=== PATIENT | male | born 1930 | race Caucasian/White ===

== ENCOUNTER 2016-08-03 00:12 | Day surgery (SDC) | payer SELFPAY ==
[2016-08-03] VITALS (11 sets, daily range): BP systolic 109–125; BP diastolic 64–80; PULSE 79–87; RESP 16–18; O2SAT 98–99
[~2016-08-03 00:12] MED LIST: ACET325T51 PO; ASCO-294 PO; ASPI-973 PO; ATEN25TA PO; FERR324T2 PO; HYDR-4003 PO; MAGN400O4 PO; MIRT15TA6 PO; NYST1000 PO; PANT40TA3 PO; POLY17PO6 PO; SIMV10TA4 PO; TAMS0.4C98 PO
--- NOTE | 2016-08-03 10:30 | NUR ---
pT HAS ARRIVED 2 HOURS LATE FOR SCHEDULED BILATERAL NEPHROSTOMY TUBE EXCHANGE. HE IS ACCOMPANIED AND DRIVEN HERE BY HIS CAREGIVER WHO STATES THAT SHE WAS TOLD TO BE HERE AT 11:00 AM. WE ARE ABLE TO ACCOMMODATE CHANGE IN TIME SO WILL PROCEED WITH ADMISSION.
[2016-08-03] MEDS ORDERED: 0.9% Sodium Chloride 500 ML ONE (10:48)
[2016-08-03] MEDS ORDERED: Levofloxacin 250 mg/50 mL D5W IV ONE (10:49)
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
[2016-08-03] MEDS ORDERED: Heparin 5,000 Units/500 mL NS Premix IV ONE (11:19)
[2016-08-03] MEDS ORDERED: fentaNYL-PF 50 mCg/mL 2 mL Inj ONE (11:20)
--- NOTE | 2016-08-03 11:56 | NUR ---
MAGALI PT RECEIVED FROM VENDING MECHANIC AT 1155. BILATERAL NEPHROSTOMY TUBES ARE DRAINING. RIGHT IS CLEAR YELLOW URINE AND LEFT IS BLOODY DRAINAGE. PT DENIES ANY PAIN. VSS.
--- NOTE | 2016-08-03 12:32 | DRSVH ---
PROCEDURE: 1. Right nephrostomy tube exchange. 2. Left nephrostomy tube exchange. 2. Conscious sedation times 27 minutes. INDICATIONS: Ureteral obstruction. COMPARISON: None. Technique: Informed, written consent from the patient was obtained prior to the procedure. Patient wa s brought to the angiography suite, and conscious sedation was administered intravenously by senior living staff, while continuous cardiorespiratory monitoring was performed. The right nephrostomy tub e and surrounding skin were prepped and draped sterilely. Contrast was injected into the nephrostomy catheter, which was then exchanged over a Glidewire for a new 10 [place] nephrostomy catheter, which was advanced into the renal pelvis. Contrast was injected into the nephrostomy catheter, which was th en fastened to the skin surface. The left nephrostomy tube and surrounding skin were prepped and blanche ped sterilely. Contrast was injected into the nephrostomy catheter, which was then exchanged over a Glidewire for a new 10 [place] nephrostomy catheter, which was advanced into the renal pelvis. Contras t was injected into the nephrostomy catheter, which was then fastened to the skin surface. FLUOROSCOPY TIME: 6 minutes. FINDINGS: The pre-existing right nephrostomy catheter is within an inferior pole infundibulum. Follo wing nephrostomy catheter exchange, the pigtail of the new nephrostomy catheter is within the renal p boni. Pre-existing left nephrostomy catheter pigtail is within the renal pelvis. Following nephrosto my catheter exchange, the pigtail of the new nephrostomy catheter is within the renal pelvis. IMPRESSION: 1. Right nephrostomy catheter exchange as described above. 2. Left nephrostomy catheter exchange as described above. Dictated by: Khoa Lisa M.D. on 08/03/2016 at 12:30 Approved by: Khoa Lisa M.D. on 08/03/2016 at 12:30
--- NOTE | 2016-08-03 13:30 | NUR ---
I OBTAINED RX FROM DR CISNEROS FOR DRESSING AND BAG SUPPLIES FOR PATIENT AND THOSE ORDERS ARE FAXED TO APPROP[facility]ATE [facility]ENCY. I HAVE ALSO INFORMED HIM OF CONTINUED GROSS HEMATURIA FROM LEFT NEPHROSTOMY TUBE AND THAT I HAVE FLUSHED IT 2 TIMES ALREADY. PATIENT HAS PAIN WHEN FLUSHED WITH 10CC NS.DR CISNEROS HAD ME INSTRUCT PATIENT AND CAREGIVER TO ONLY INSTILL 5CC SALINE TO LEFT KIDNEY AND 10CC NS TO RIGHT. I INSTILLED 10CC NS TO RIGHT KIDNEY AND PATIENT HAD NO COMPLAINTS. ADDITIONALLY, PATIENT IS TO RETURN IN 6 MONTHS TO HAVE ANOTHER EXCHANGE. OUR DIRECTOR PRODUCT CALLED TO SCHEDULE BUT IT IS TOO DISTANT TO SCHEDULE NOW. SHE CALLED DR. MCNEILL'S OFFICE TO INFORM THEM AND THE ORDER IS ALSO FAXED TO HER OFFICE. DR MCNEILL, UROLOGIST, IS THE REFERRING PHYSICIAN FOR TODAY'S PROCEDURE.
--- NOTE | 2016-08-03 14:00 | NUR ---
PATIENT'S CAREGIVER IS INSTRUCTED HOW TO FLUSH NEPHROSTOMY TUBES AND SHE CORRECTLY DEMONSTRATES THIS TO ME.I CHANGED OUT THE LEFT NEPHROSTOMY BAG ALSO. I HAVE GIVEN THE PATIENT BAGS AND STAYFIX DRSG FOR THE NEXT MONTH UNTIL HE RECEIVES SUPPLIES. THE ARC WELDER HAS RETURNED MY CALL AND UNFORTUNATELY AT THIS POINT THERE IS NO INTERVENTION THAT CAN BE MADE. I INFORMED CAREGIVER THAT IF PATIENT IS UNABLE TO AFFORD THE SERVICES OF THE CAREGIVERS (HE IS PRIVATE PAY FOR 24 HR CAREGIVER CURRENTLY), THAT SHE SHOULD HAVE HER AGENCY INFORM PATIENT'S PRIMARY DOCTOR OF THIS, PERHAPS REFERRAL COULD BE MADE TO [facility] TO SEE IF PATIENT QUALIFIES FOR ANY SERVICES.I ALSO ADVISED PATIENT TO FOLLOW UP WITH MEDICARE REGISTRATION FOR THIS STATE. HE NODS UNDERSTANDING TO THIS.PATIENT'S DISCHARGE INSTRUCTIONS REVIEWED WITH HIM AND CAREGIVER. I STRESSED TO PATIENT AND CAREGIVER THAT IF HE STARTS TO HAVE A FEVER WITH OR WITHOUT SHAKING CHILLS THEY ARE TO CALL 911 IMMEDIATELY THIS MAY SIGNAL A POSSIBLE FATAL INFECTION. PATIENT IS DISCHARGED IN WHEELCHAIR WITH CAREGIVER.
--- OUTSIDE RECORDS SUMMARY | 2016-08-16 08:10 | XMS | Continuity of Care Document ---
Author Author [facility] Organization [facility] [place] [address] Phone Unavailable Care Team Providers Care Twist Packer Name Role Phone Unavailable Unavailable Allergies, Adverse Reactions, Alerts Allergen Type Severity Reaction Last Updated Verified Status Penicillins Allergy Moderate Rash January 03, 2016 Y Active Medications Active Medications Medication Dose Units Route Sig Qty Days Start Date Discontinued Date Status Instructions Simvastatin 10 MG ORAL EVERY EVENING December 16, 2012 Active Aspirin 81 MG ORAL DAILY December 16, 2012 Active Tamsulosin 0.4 MG ORAL EVERY EVENING September 14, 2015 Active Acetaminophen 650 MG ORAL EVERY 4 HOURS PRN For Pain 1 to 4 0 March 20, 2016 Active Hydrocodone/Acetaminophen 2 TAB ORAL Q4H PRN For Pain August 04, 2016 Active Mirtazapine 15 MG ORAL EVERY EVENING August 04, 2016 Active Nystatin 1 APPLIC TOPICALLY THREE TIMES A DAY August 06, 2016 Active Acetaminophen 650 MG ORAL EVERY 4 HOURS PRN For Pain 1 to 4 0 August 09, 2016 Active Ferrous Sulfate 325 MG ORAL TWICE DAILY WITH MEALS August 09, 2016 Active Metoprolol Tartrate 12.5 MG ORAL TWICE A DAY 30 August 09, 2016 Active Nystatin Cream 1 APPLIC TOPICALLY THREE TIMES A DAY August 09, 2016 Active Nystatin 1 APPLIC TOPICALLY THREE TIMES A DAY 0 August 09, 2016 Active Potassium Chloride 40 MEQ ORAL DAILY WITH MEAL 10 August 09, 2016 Active Discontinued Medications Medication Dose Units Route Sig Qty Days Start Date Discontinued Date Status Instructions Atenolol 25 MG ORAL DAILY December 16, 2012 March 16, 2016 Discontinued Lisinopril 10 MG ORAL DAILY December 16, 2012 September 14, 2015 Discontinued Cyanocobalamin (Vitamin B-12) 1 DAILY December 16, 2012 October 21, 2014 Discontinued Cephalexin 500 MG ORAL THREE TIMES A DAY 20 September 10, 2014October Discontinued Cholecalciferol (Vitamin D3) 1000 UNIT ORAL DAILY October 21, 2014 September 14, 2015 Discontinued Atenolol 25 MG ORAL DAILY March 16, 2016 March 16, 2016 Discontinued Pantoprazole 40 MG ORAL DAILY BEFORE A MEAL 30 March 16, 2016 March 16, 2016 Discontinued Tamsulosin 0.4 MG ORAL DAILY March 16, 2016 March 16, 2016 Discontinued Omeprazole 20 MG ORAL DAILY March 17, 2016 August 04, 2016 Discontinued Ciprofloxacin 250 MG ORAL TWICE A DAY 60 March 20, 2016 August 04, 2016 Discontinued Fluconazole 200 MG ORAL DAILY 28 March 20, 2016 August 04, 2016 Discontinued Linezolid 600 MG ORAL TWICE A DAY 60 March 20, 2016 August 04, 2016 Discontinued Saccharomyces Boulardii 250 MG ORAL TWICE A DAY 60 March 20, 2016 August 04, 2016 Discontinued Problem List Active Problems Medical Problem Onset Date Status Abnormal LFTs (liver function tests) Active Acute on chronic renal insufficiency Active Altered mental status Active Anemia Active Anemia aplastic aregenerative Active Anemia in chronic kidney disease Active Atrial fibrillation, rapid Active Bacteremia Active Benign prostatic hypertrophy with lower urinary tract symptoms (LUTS) Active Colon neoplasm Active Colonic obstruction Active Colostomy care Active Contact dermatitis Active Counseling regarding end of life decision making Active Dehydration Active Electrolyte and fluid disorder Active Enterococcus, vancomycin-resistant Active Failure to thrive in adult Active Fever Active Macias catheter problem Active Gait disturbance Active Gram positive sepsis Active Group B streptococcal bacteriuria Active HTN (hypertension) Active [id number] Active History of colon cancer, stage II Active 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 Active Hyperkalemia Active Hyperlipidemia Active Hypophosphatemia Active Hypotension Active Large bowel obstruction Active Nephrostomy tube bleed Active Non-STEMI (non-ST elevated myocardial infarction) Active Orthostatic hypotension Active Paroxysmal atrial fibrillation Active Pneumonia Active Protein calorie malnutrition Active Renal artery stenosis Active Renal failure Active Renal failure (ARF), acute on chronic Active Renal insufficiency Active Sepsis Active Sepsis associated hypotension Active Syncope Active Tachyarrhythmia Active UTI (lower urinary tract infection) Active UTI (urinary tract infection) Active UTI (urinary tract infection) with pyuria Active UTI (urinary tract infection), bacterial Active UTI symptoms Active Urinary (tract) obstruction Active Urinary retention Active anemia Active Procedures Procedure Date Status Urine Culture August 06, 2016 completed Blood Culture August 05, 2016 completed Urine Culture August 04, 2016 completed Blood Culture August 04, 2016 completed Urine Culture April 01, 2016 completed Blood Culture April 01, 2016 completed Urine Culture March 19, 2016 completed Occult Blood March 18, 2016 completed Blood Culture March 18, 2016 completed Wound Culture March 14, 2016 completed Occult Blood March 14, 2016 completed Blood Culture March 14, 2016 completed Urine Culture March 13, 2016 completed FLUOROSCOPY OF KIDNEY, URETER & BLADDER USING L OSM CONTRAST January 31, 2016 active REMOVAL OF INTRALUMINAL DEVICE FROM URETER, ENDO January 31, 2016 active DILATION OF RIGHT URETER, ENDO January 31, 2016 active Occult Blood January 04, 2016 completed Urine Culture January 03, 2016 completed Occult Blood November 13, 2015 completed Urine Culture November 12, 2015 completed Blood Culture November 11, 2015 completed TRANSFUSE NONAUT RED BLOOD CELLS IN PERIPH VEIN, PERC November 08, 2015 active EXCISION OF PROSTATE, ENDO November 08, 2015 active EXTIRPATION OF MATTER FROM BLADDER, ENDO November 08, 2015 active DILATION OF RIGHT URETER WITH INTRALUMINAL DEVICE, ENDO November 08, 2015 active Relevant Diagnostic Tests and/or Laboratory Data Laboratory Results Test Date/Time Result Interp. Ref. Range Result Comment White Blood Count August 09, 2016 6:08am 4.9 x10^3/uL 4.8-10.8 Red Blood Count August 09, 2016 6:08am 2.73 10^6/uL Low 4.70-6.10 Hemoglobin August 09, 2016 6:08am 8.3 g/dL Low 14.0-18.0 Hematocrit August 09, 2016 6:08am 25.4 % Low 42.0-52.0 Mean Corpuscular Volume August 09, 2016 6:08am 92.9 fL 80.0-94.0 Mean Corpuscular Hemoglobin August 09, 2016 6:08am 30.5 pg 27.0-31.0 Mean Corpuscular Hemoglobin Concent August 09, 2016 6:08am 32.8 g/dL 32.0-36.0 Red Cell Distribution Width August 09, 2016 6:08am 14.8 % 12.0-15.0 Mean Platelet Volume August 09, 2016 6:08am 8.5 fL 7.4-11.4 Neutrophils # (Auto) August 09, 2016 6:08am 2.5 10^3/uL 1.5-6.6 Monocytes # (Auto) August 09, 2016 6:08am 0.4 10^3/uL 0.0-1.0 Eosinophils # (Auto) August 09, 2016 6:08am 0.5 10^3/uL 0.0-0.7 Basophils # (Auto) August 09, 2016 6:08am 0.0 10^3/uL 0.0-0.1 Nucleated Red Blood Cells August 09, 2016 6:08am 0.0 /100WBC Nucleated RBC Absolute Count (auto) August 09, 2016 6:08am 0.00 x10^3/uL Neutrophils # (Manual) August 08, 2016 4:13am 2.5 10^3/uL 1.5-6.6 Lymphocytes # (Manual) August 08, 2016 4:13am 1.5 10^3/uL 1.5-3.5 Monocytes # (Manual) August 08, 2016 4:13am 0.5 10^3/uL 0.0-1.0 Eosinophils # (Manual) August 08, 2016 4:13am 0.4 10^3/uL 0-0.7 Platelet Morphology March 19, 2016 5:40am NORMAL APPEARANCE Platelet Estimate August 08, 2016 4:13am NORMAL (130-450,000) RBC Morphol Microscopic Appearance August 08, 2016 4:13am NORMAL APPEARANCE White Blood Cell Morphology November 14, 2015 5:35am NORMAL APPEARANCE Prothrombin Time August 06, 2016 4:40pm 12.7 secs High 9.9-12.6 Prothromb Time International Ratio August 06, 2016 4:40pm 1.1 0.8-1.2 Oral Anticoagulant Indication INR range Venous Thrombosis, P.E. 2.0 - 3.0 Mechanical Valve 2.5 - 3.5 Urine Color August 08, 2016 11:00am LT. YELLOW Urine Clarity August 08, 2016 11:00am CLEAR Urine Leukocyte Esterase August 08, 2016 11:00am SMALL High Urine Nitrite August 08, 2016 11:00am NEGATIVE Urine Urobilinogen August 08, 2016 11:00am 0.2 (NORMAL) E.U./dL Urine Protein August 08, 2016 11:00am NEGATIVE mg/dL Urine pH August 08, 2016 11:00am 7.0 PH Urine Occult Blood August 08, 2016 11:00am MODERATE High Urine Specific [place] August 08, 2016 11:00am 1.010 Urine Ketones August 08, 2016 11:00am NEGATIVE mg/dL Urine Bilirubin August 08, 2016 11:00am NEGATIVE Urine Glucose (UA) August 08, 2016 11:00am NEGATIVE mg/dL Urine Microscopic Review August 05, 2016 11:59pm INDICATED Urine WBC August 08, 2016 11:00am 6-10 /HPF High Urine WBC Clumps March 16, 2016 10:15pm PRESENT Urine RBC August 08, 2016 11:00am 6-10 /HPF High Urine Squamous Epithelial Cells August 08, 2016 11:00am NONE SEEN Urine Epithelial Cells April 01, 2016 9:25am FEW Transitional /HPF Urine Bacteria August 08, 2016 11:00am Rare /HPF Urine Amorphous Sediment April 01, 2016 9:25am Few /LPF Urine Yeast March 19, 2016 3:15pm PRESENT Urine Culture Comments August 06, 2016 12:50am INDICATED Sodium Level August 09, 2016 6:08am 142 mmol/L 135-145 Potassium Level August 09, 2016 6:08am 3.4 mmol/L Low 3.5-5.0 Chloride Level August 09, 2016 6:08am 113 mmol/L High 101-111 Carbon Dioxide Level August 09, 2016 6:08am 21 mmol/L 21-32 Anion Gap August 09, 2016 6:08am 8.0 6-13 Blood Urea Nitrogen August 09, 2016 6:08am 10 mg/dL 6-20 Creatinine August 09, 2016 6:08am 1.6 mg/dL High 0.6-1.2 Estimated GFR (MDRD) August 09, 2016 6:08am 41 Low 89- The IDMS- traceable MDRD Study Equation has been validated extensively in and populations between the ages of 18 and 70 with impaired kidney function (eGFR < 60 mL/min/1.73m2) and has shown good performance for patients with all common causes of kidney disease. Although this equation has not been validated for patients older than 70, an MDRD-derived eGFR may still be a useful tool for providers caring for patients older than 70. References: http://www.nkdep.nih.gov/lab-evaluation/gfr/creatinine- standardization, last updated September 2011. Glucose Level August 09, 2016 6:08am 87 mg/dL 70-100 GLUCOSE REFERENCE RANGE: Fasting 70-100 mg/dL Random <200 mg/dL Calcium Level August 09, 2016 6:08am 8.2 mg/dL Low 8.5-10.3 Phosphorus Level August 08, 2016 4:13am 3.5 mg/dL 2.5-4.6 Magnesium Level August 06, 2016 10:50am 1.9 mg/dL 1.7-2.8 Total Bilirubin August 09, 2016 6:08am 0.7 mg/dL 0.2-1.0 Aspartate Amino Transf (AST/SGOT) August 09, 2016 6:08am 15 IU/L 10-42 Alanine Aminotransferase (ALT/SGPT) August 09, 2016 6:08am 13 IU/L 10- 60 Alkaline Phosphatase August 09, 2016 6:08am 47 IU/L 42-121 Troponin I August 05, 2016 7:00pm < 0.04 ng/mL A TROPONIN result of > =0.50 ng/mL is considered POSITIVE. B-Type Natriuretic Peptide April 03, 2016 4:40am 46 pg/mL 5-100 Total Protein August 09, 2016 6:08am 6.1 g/dL Low 6.7-8.2 Albumin August 09, 2016 6:08am 2.4 g/dL Low 3.2-5.5 Globulin August 09, 2016 6:08am 3.7 g/dL 2.1-4.2 Albumin/Globulin Ratio August 09, 2016 6:08am 0.6 Low 1.0-2.2 Lipase August 04, 2016 6:25pm 30 U/L 22-51 Thyroid Stimulating Hormone (TSH) August 05, 2016 7:00pm 2.66 uIU/mL 0.34-5.60 Microbiology Results Procedure Source Result Collection Date/Time Result Date/Time Blood Culture Blood NO GROWTH AFTER 5 DAYS November 11, 2015 5:50pm Urine Culture Urine,Clean Catch No results entered November 12, 2015 2:00pm Occult Blood Stool No results entered November 13, 2015 8:43pm Urine Culture Urine,Clean Catch No results entered January 03, 2016 11:40am Occult Blood Stool No results entered January 04, 2016 8:05pm Urine Culture Urine,Catheterized No results entered March 13, 2016 5:45pm Wound Culture Drainage No results entered March 14, 2016 11:36am Occult Blood Stool No results entered March 14, 2016 8:00am Blood Culture Blood NO GROWTH AFTER 5 DAYS March 14, 2016 12:14am Occult Blood Stool No results entered March 18, 2016 12:34pm Blood Culture Blood NO GROWTH AFTER 5 DAYS March 18, 2016 4:35am Urine Culture Urine,Clean Catch No results entered March 19, 2016 3:15pm Blood Culture Blood NO GROWTH AFTER 5 DAYS April 01, 2016 1:34pm Urine Culture Urine,Random No growth April 01, 2016 9:25am Blood Culture Blood Staphylococcus Aureus August 04, 2016 7:25pm August 10, 2016 12:11pm Urine Culture Urine,Clean Catch No results entered August 04, 2016 6:45pm Blood Culture Blood NO GROWTH AFTER 5 DAYS August 05, 2016 7:00pm Urine Culture Urine,Kidney No growth August 06, 2016 12:50am Advance Directives Advance Directive Response Recorded Date/Time Advance Directives on file? No August 05, 2016 8:34pm Code Status Do Not Attempt Resuscitat August 05, 2016 8:33pm Chief Complaint and Reason for Visit Encounter Admit Date Chief Complaint Reason for Visit Discharged Inpatient August 05, 2016 7:33pm BACTEREMIA Rapid atrial fibrillation Bacteremia Gram positive sepsis Hemorrhage of genitourinary prosthetic device, implant, or graft Hypophosphatemia Paroxysmal atrial fibrillation Hospital Discharge Instructions Additional Discharge Instructions Follow up with urologist Follow up with PCP in 5-7 days for BP managment; calcium and potassium levels, hgb and hct level Instruction/Education Provided Potassium Oral tablet extended-release Metoprolol Tartrate Oral tablet Hypophosphatemia Dc Hospital Discharge Medications Medication Dose Units Route Sig Qty Days Order Date Status Instructions Atenolol 25 MG ORAL DAILY December 16, 2012 Discontinued Lisinopril 10 MG ORAL DAILY December 16, 2012 Discontinued Simvastatin 10 MG ORAL EVERY EVENING December 16, 2012 Active Aspirin 81 MG ORAL DAILY December 16, 2012 Active Cyanocobalamin (Vitamin B-12) 1 DAILY December 16, 2012 Discontinued Cephalexin 500 MG ORAL THREE TIMES A DAY September 10, 2014 Discontinued Cholecalciferol (Vitamin D3) 1000 UNIT ORAL DAILY October 21, 2014 Discontinued Tamsulosin 0.4 MG ORAL EVERY EVENING September 14, 2015 Active Atenolol 25 MG ORAL DAILY March 16, 2016 Discontinued Pantoprazole 40 MG ORAL DAILY BEFORE A MEAL March 16, 2016 Discontinued Tamsulosin 0.4 MG ORAL DAILY March 16, 2016 Discontinued Omeprazole 20 MG ORAL DAILY March 17, 2016 Discontinued Acetaminophen 650 MG ORAL EVERY 4 HOURS PRN For Pain 1 to 4 0 March 20, 2016 Active Ciprofloxacin 250 MG ORAL TWICE A DAY 60 March 20, 2016 Discontinued Fluconazole 200 MG ORAL DAILY 28 March 20, 2016 Discontinued Linezolid 600 MG ORAL TWICE A DAY 60 March 20, 2016 Discontinued Saccharomyces Boulardii 250 MG ORAL TWICE A DAY 60 March 20, 2016 Discontinued Hydrocodone/Acetaminophen 2 TAB ORAL Q4H PRN For Pain August 04, 2016 Active Mirtazapine 15 MG ORAL EVERY EVENING August 04, 2016 Active Nystatin 1 APPLIC TOPICALLY THREE TIMES A DAY August 06, 2016 Active Acetaminophen 650 MG ORAL EVERY 4 HOURS PRN For Pain 1 to 4 0 August 09, 2016 Active Ferrous Sulfate 325 MG ORAL TWICE DAILY WITH MEALS August 09, 2016 Active Metoprolol Tartrate 12.5 MG ORAL TWICE A DAY 30 August 09, 2016 Active Nystatin Cream 1 APPLIC TOPICALLY THREE TIMES A DAY August 09, 2016 Active Nystatin 1 APPLIC TOPICALLY THREE TIMES A DAY 0 August 09, 2016 Active Potassium Chloride 40 MEQ ORAL DAILY WITH MEAL 10 August 09, 2016 Active Encounters Encounter Facility Location Admit Date Discharge Date Attending Provider Discharged Inpatient [facility] August 05, 2016 7:33pm August 09, 2016 6:30pm Palak Cruz Departed Emergency [facility] Emergency Department August 04, 2016 5:47pm August 04, 2016 8:38pm Departed [facility] August 04, 2016 5:36pm August 04, 2016 5:37pm Blair Valdez Departed [facility] Services July 14, 2016 12:20pm July 14, 2016 12:21pm Blair Valdez Departed [facility] Lab (Main) June 23, 2016 11:14am June 23, 2016 11:15am Cookie Lindsay Departed Clinical [facility] April 03, 2016 2:00pm April 03, 2016 11:59pm Blair Valdez Discharged Inpatient [facility] April 01, 2016 10:27am April 03, 2016 1:50pm Veronica Barakat Departed Clinical [facility] April 01, 2016 8:00am April 01, 2016 8:01am Blair Valdez Departed Clinical [facility] March 31, 2016 7:34am March 31, 2016 7:35am Blair Valdez Departed [facility] Lab (Main) March 21, 2016 11 :52am March 21, 2016 11:53am Cookie Lindsay Discharged Inpatient [facility] March 16, 2016 10:56pm March 20, 2016 11:30am Veronica Barakat Departed [facility] Services March 16, 2016 7:34pm March 16, 2016 11:59pm Blair Valdez Discharged Inpatient [facility] March 13, 2016 3:04pm March 16, 2016 2:15pm Veronica Barakat Departed [facility] Medical Services March 13, 2016 12:29pm March 13, 2016 12:30pm Blair Valdez Departed Surgical Day Care [facility] Same Day Surgery January 31, 2016 8:14am January 31, 2016 8:15am Igor Haney Departed [facility] Diagnostic Imaging (Main) January 26, 2016 11:18am January 26, 2016 11:[facility] 11, 2016 11: 53am January 11, 2016 11:54am Camelia Bañuelos Discharged Inpatient [facility] December 2:15pm January 06, 2016 12:45pm Veronica Barakat Departed [facility] Emergency Medical Services January 03, 2016 10:26am January 03, 2016 10:27am Blair Valdez Departed [facility] Services January 02, 2016 7:13pm January 02, 2016 7:14pm Blair Valdez Departed [facility] ([facility]) December 02, 2015 9:45am December 02, 2015 9:46am Camelia Bañuelos Departed [facility] Medical Services November 14, 2015 2:48pm November 14, 2015 2:49pm Blair Valdez Discharged Inpatient [facility] November 08, 2015 6:03am November 14, 2015 2:35pm Igor Haney Departed Clinical [facility] Lab (Main) October 26, 2015 9: 42am October 26, 2015 9:43am Igor Haney Departed Clinical [facility] Lab (Main) October 19, 2015 6: 54am October 19, 2015 6:55am Igor Haney Encounter Diagnosis Onset Date Rapid atrial fibrillation Bacteremia Gram positive sepsis Hemorrhage of genitourinary prosthetic device, implant, or graft Hypophosphatemia Paroxysmal atrial fibrillation Functional Status No known functional status. Immunizations No known immunizations. Payers Payer Name Policy Type Covered Democrat Covered Democrat Id Relationship Subscriber Subscriber Id [employer] GH Recipro BIRD CRUZ [id number] Self / Same as Patient BIRD CRUZ [id number] Medicare Misc BIRD CRUZ [id number] Self / Same as Patient BIRD CRUZ [id number] Plan of Care Instructions Potassium Oral tablet extended-release Metoprolol Tartrate Oral tablet Hypophosphatemia Dc Social History Query Response Date Recorded Comment Are you having thoughts of suicide? No August 06, 2016 12:00am Cellular January 31, 2016 8:33am Emotional Support unknown August 05, 2016 10:11pm Name Dr. Christopher Portillo August 07, 2016 11:22pm Plan of harm No plan August 06, 2016 12:00am Relationship Friend August 06, 2016 9:38am Self [employer] Powerless March 11, 2015 11:19am Support Person Involved in the patient's January 06, 2016 1:57am Vital Signs Vital Reading Result Reference Range Collection Date/Time Height 5 ft 10 in August 05, 2016 8:34pm Weight 65.4 kg August 05, 2016 8:34pm Temperature 97.5 F 97.7 F-99.5 F August 09, 2016 11:47am Pulse 61 BPM 60-100 August 09, 2016 11:47am Respiration 16 RPM -August 09, 2016 11:47am Pulse Oximetry 98 % 92-100 August 09, 2016 11:47am Blood Pressure Systolic 105 90-130 August 09, 2016 11:47am Blood Pressure Diastolic 58 60-80 August 09, 2016 11:47am Body Mass Index 20.7 August 05, 2016 8:34pm
== END 2016-08-03 23:59 | disposition home or self-care (01) ==
LOC: SOUO 00:12
PROVIDERS: ATTEND Radiology Diagnostic Radiology
DX: Z43.6 Encounter for attention to other artificial openings of urinary tract (principal); N13.5 Crossing vessel and stricture of ureter without hydronephrosis
CPT/HCPCS: 50435; 75984; 99152; 99153; C1729; C1769; J1644; J2250; J3010; Q9967